=== PATIENT | male | born 1990 | race Caucasian/White ===

== ENCOUNTER 2017-07-10 17:53 | Emergency (ER) | payer MEDICAID ==
[~2017-07-10] VITALS: Ht 175.3 cm; Wt 72.6 kg
[~2017-07-10 17:53] MED LIST: FLEXERIL10 MG PO; HYDROCODONE-APA1 TA1 PO; ULTRAM50 MG PO; ZITHROMAX Z-PA250 M1 PO
--- OUTSIDE RECORDS SUMMARY | 2017-07-10 18:37 | External Medical Summary Rpt | CCD ---
Author Author [employer] Organization [employer] Address Unknown Phone Unavailable Purpose Continuity of Care Document - through 2016
--- OUTSIDE RECORDS SUMMARY | 2017-07-10 18:37 | External Medical Summary Rpt | CCD ---
Author Author WILLIAM Address Unknown Phone Purpose Continuity of Care Document - through 2016
--- OUTSIDE RECORDS SUMMARY | 2017-07-10 18:38 | External Medical Summary Rpt | CCD ---
Author Author , WILLIAM HAYNES Address Unknown Phone [email or web address] Immunization Name Date Rout CVX Reac Dose Comm Prov Is Faci e tion ent ider Refu lity Give sed n Hep 08-1 8 999 Hist H205 No H205 B, 2-20 oric ped/ 05 al adol Info rmat ion - Sour ce Unsp ecif ied Hep 09-2 8 999 Hist H205 No H205 B, 0-20 oric ped/ 04 al adol Info rmat ion - Sour ce Unsp ecif ied Hep 08-1 8 999 Hist H205 No H205 B, 7-20 oric ped/ 04 al adol Info rmat ion - Sour ce Unsp ecif ied Hep 07-0 8 999 Hist H205 No H205 B, 9-19 oric ped/ 98 al adol Info rmat ion - Sour ce Unsp ecif ied Hep 05-2 8 999 Hist H205 No H205 B, 8-19 oric ped/ 98 al adol Info rmat ion - Sour ce Unsp ecif ied MMR 05-2 3 999 Hist H205 No H205 8-19 oric 98 al Info rmat ion - Sour ce Unsp ecif ied
--- OUTSIDE RECORDS SUMMARY | 2017-07-10 18:38 | External Medical Summary Rpt ---
Author Author [employer], [employer] Address Unknown Phone Unavailable
--- OUTSIDE RECORDS SUMMARY | 2017-07-10 18:38 | External Medical Summary Rpt | CCD ---
Author Author , WILLIAM HAYNES Address Unknown Phone [email or web address] Immunization Name Date Rout CVX Reac Dose [...]
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
[2017-07-10 19:27] LABS: URINE BILIRUBIN - DIPSTICK NEGATIVE (NEG); URINE BLOOD NEGATIVE (NEG)
[2017-07-10 19:36] LABS: AMPHETAMINES/METAMPHETAMINES NEGATIVE ng/mL (<1000)
[2017-07-10] MEDS ORDERED: ROBAXIN-750750 MG PO (19:45)
[2017-07-10] MEDS ORDERED: PREDNISONE 5MG.5 MG PO (19:45)
[2017-07-10 20:25] VITALS: BP 147/97
--- NOTE | 2017-07-10 21:37 | RADIOLOGY REPORT PS360 ---
EXAM: LUMBAR SPINE 5 VIEWS HISTORY: PAIN ORDERING PHYSICIAN: Michael Randolph MD PATIENT AGE: 27 years COMPARISON: None FINDINGS: Normal alignment. No fracture or dislocation. No lytic or blastic change. No significant degenerative change. The disc spaces are preserved. IMPRESSION: Negative lumbar spine
--- NOTE | 2017-07-10 21:37 | RADIOLOGY REPORT PS360 ---
EXAM: CERVICAL SPINE 4 OR 5 VIEWS HISTORY: neck pain ORDERING PHYSICIAN: Michael Randolph MD PATIENT AGE: 27 years COMPARISON: None FINDINGS: Normal alignment. No fracture or dislocation. No lytic or blastic change. No significant degenerative change. The disc spaces are preserved. No foraminal narrowing IMPRESSION: Negative cervical spine
== END 2017-07-10 20:30 | disposition home or self-care (01) ==
LOC: ER 17:53
PROVIDERS: General Practice
DX: S39.012A Strain of muscle, fascia and tendon of lower back, initial encounter (principal); S16.1XXA Strain of muscle, fascia and tendon at neck level, initial encounter; F17.210 Nicotine dependence, cigarettes, uncomplicated; Z88.6 Allergy status to analgesic agent
CPT/HCPCS: J1040